=== PATIENT | female | born 1980 | race Two or more races ===

== ENCOUNTER 2018-01-16 12:17 | Emergency (ER) | payer SELFPAY ==
[2018-01-16 12:24] VITALS: TEMP 99; O2SAT 99
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
[2018-01-16 20:12] VITALS: BP 130/70; PULSE 92; RESP 18
== END 2018-01-16 16:09 | disposition left against medical advice (07) ==
LOC: H.ER 12:17
DX: M79.606 Pain in leg, unspecified (principal); Z04.41 Encounter for examination and observation following alleged adult rape; E66.01 Morbid (severe) obesity due to excess calories; F32.9 Major depressive disorder, single episode, unspecified; G89.29 Other chronic pain